=== PATIENT | female | born 1975 | race Hispanic/Latino ===

== ENCOUNTER → 2016-08-22 | Outpatient (CLI) | payer OTHER ==
--- NOTE | 2016-08-23 03:56 | REP ---
Clinical: Umbilical hernia. Technique: Real time benson scale ultrasound examination using curved array transducer. Findings: Ultrasound examination of the periumbilical region demonstrates prior repair and no acute hernia. Palpable mass may correspond to postsurgical scarring. No fluid collection or mass lesion identified. Impression: No evidence for recurrent periumbilical hernia, mass or fluid collection. Signed by Girma Youssef MD 08/23/2016 03:47 A
== END ==
LOC: M RAD 10:12
PROVIDERS: ATTEND Nurse Practitioner Adult Health
DX: K42.9 Umbilical hernia without obstruction or gangrene (principal); R10.13 Epigastric pain

== ENCOUNTER → 2016-10-07 | Outpatient (CLI) | payer OTHER ==
--- NOTE | 2016-10-07 14:58 | REP ---
BILATERAL MAMMOGRAM WITH DIAGNOSTIC MAMMOGRAM LEFT BREAST AND LEFT BREAST ULTRASOUND: HISTORY: Family history of breast cancer in maternal aunt and maternal grandmother. There are on prior studies for comparison. Moderate fibroglandular tissue is seen bilaterally. There is no mammographic evidence of a mass. No architectural distortion is seen bilaterally and there are no suspicious clusters of microcalcifications. Real-time sonographic evaluation of the upper outer quadrant of the left breast performed at the site of the reported palpable abnormality. Again, nothing was seen in this area by mammography. By ultrasound there does appear to be an oval hypoechoic nodule at 1-o'clock measuring 7 x 6 x 3 mm. This is not a simple cyst. No other cystic or solid nodule is seen. IMPRESSION: ACR 4 suspicious. There is no mammographic evidence of mass or clustered microcalcifications. No mammographic evidence of a nodule at the site of the reported palpable abnormality in the upper outer quadrant of the left breast. However, by ultrasound there is a hypoechoic nodule 1-o'clock which measures 7 x 6 x 3 mm. It is not a simple cyst. Recommend ultrasound guided biopsy. BI-RADS/ACR category 4 mammogram. Suspicious abnormality - biopsy should be considered. Usually requires biopsy. This mammogram was interpreted with the aid of an FDA-approved computer-aided detection system. The patient states she/he had a clinical breast exam in September 2016. The patient letter being requested is M4. Signed by Micah Chau MD 10/07/2016 05:24 P
== END ==
LOC: M RAD 12:18
PROVIDERS: ATTEND Nurse Practitioner Adult Health
DX: N63 Unspecified lump in breast (principal)

== ENCOUNTER → 2016-11-22 | Outpatient (CLI) | payer OTHER ==
[~2016-11-22] MED LIST: LIDOCAINE 1% MDV 20ML VIAL As Ordered ONE
--- NOTE | 2016-11-22 12:41 | REP ---
LEFT BREAST POST BIOPSY CLIP PLACEMENT MAMMOGRAM: 11/22/2016. Clinical history: Palpable left breast mass for ultrasound-guided core biopsy. Comparison: Diagnostic mammogram 10/07/2016. Findings. Two-view show heterogeneous dense breast parenchyma in a pattern and distribution unchanged. Stereotactic clip in the upper outer quadrant of the left breast about the 1:30 position in the middle one-third depth of the breast. This is the region of the breast targeted for ultrasound guided biopsy. Followup should be made based on determination from pathologic analysis of the core specimens. Impression: 1. Status post stereotactic biopsy left breast with clip in the upper outer quadrant. 2. Routine followup recommended unless biopsy results indicate earlier or other followup and treatment. Signed by Trevor Goldberg MD 11/22/2016 06:59 P
--- NOTE | 2016-11-22 14:10 | REP ---
ULTRASOUND GUIDED LEFT BREAST BIOPSY: The procedure was performed under the direct supervision of Dr. Goldberg. The patient has a history of a 7 x 6 x 3 mm hypoechoic nodule in the 1 -o'clock position of the left breast seen on a previous ultrasound dated 10/07/2016. The risks and benefits of the procedure were explained to the patient and informed consent was obtained. The left breast nodule was localized using ultrasound guidance. The skin was prepped and draped in a sterile fashion. 1% Xylocaine was used as a local anesthetic. Using ultrasound guidance, a 13 gauge suction-assisted Mammotome needle was inserted and five core biopsy samples were obtained. A marker clip was placed at the biopsy site. The patient tolerated the procedure well and there were no immediate complications. After the appropriate amount of monitored convalescence, the patient was discharged from the department. Reviewed by ROSY Beltran 11/22/2016 03:04 PEdited and Signed by Trevor Goldberg MD 11/22/2016 07:16 P
== END ==
LOC: M RADPRO 10:50
PROVIDERS: ATTEND Surgery
DX: D24.2 Benign neoplasm of left breast (principal); Z79.899 Other long term (current) drug therapy
CPT/HCPCS: 19083; 88305; G0206

== ENCOUNTER → 2017-09-28 | Outpatient (REF) | payer OTHER ==
[2017-10-03 14:16] LABS: HPV HYBRID CAPTURE II Negative (Negative)
== END ==
LOC: M LAB REF 16:52
DX: R30.0 Dysuria (principal)

== ENCOUNTER → 2018-09-03 | Outpatient (REF) | payer OTHER | LOC: M SFHCLERA 16:20 | PROVIDERS: ATTEND Physician Assistant | DX: R82.998 Other abnormal findings in urine (principal) ==

== ENCOUNTER 2018-10-03 10:35 | Emergency (ER) | payer OTHER ==
[~2018-10-03] VITALS: Ht 152.4 cm; Wt 82.0 kg
[2018-10-03 10:36] VITALS: BP 149/94
[2018-10-03] MEDS ORDERED: ARNU1INH PO (10:46)
[2018-10-03] MEDS ORDERED: SING10TA32 PO (10:46)
[2018-10-03] MEDS ORDERED: VENTAER INH (10:46)
--- NOTE | 2018-10-03 11:18 | REP ---
LEFT ANKLE, FOUR VIEWS: HISTORY: Injury. There is no acute fracture or dislocation. The joint spaces are normal in appearance. Soft tissue swelling is present. IMPRESSION: There is no acute fracture or dislocation. Electronically Signed by Paras Canales MD 10/03/2018 11:25 A
== END 2018-10-03 12:04 | disposition home or self-care (01) ==
LOC: M ED 10:35
DX: S93.402A Sprain of unspecified ligament of left ankle, initial encounter (principal); X50.1XXA Overexertion from prolonged static or awkward postures, initial encounter; Y92.89 Other specified places as the place of occurrence of the external cause; Y93.89 Activity, other specified; Y99.0 Civilian activity done for income or pay; J45.909 Unspecified asthma, uncomplicated; Z72.0 Tobacco use; Z79.899 Other long term (current) drug therapy

== ENCOUNTER → 2018-10-11 | Outpatient (REF) | payer OTHER ==
[~2018-10-11] MED LIST changes: +ARNU1INH PO; -LIDOCAINE 1% MDV 20ML VIAL As Ordered ONE; +SING10TA32 PO; +VENTAER INH
[2018-10-11 17:51] LABS: HEMOGLOBIN A1c 5.6 %
== END ==
LOC: M SFHCPLAZ 15:12
PROVIDERS: ATTEND Nurse Practitioner Adult Health
DX: Z83.3 Family history of diabetes mellitus (principal)

== ENCOUNTER → 2018-11-06 | Outpatient (CLI) | payer OTHER ==
--- NOTE | 2018-11-06 11:46 | REP ---
Supine abdomen two views: There are no comparisons. The bowel gas pattern is normal. There are right upper quadrant surgical clips. There is a calcification inferiorly in the pelvis on the left, nonspecific, phlebolith versus ureteral. Skeletal structures and soft tissues otherwise are unremarkable. Impression: Normal bowel gas pattern. Nonspecific pelvic calcification. Electronically Signed by Micah Guy MD 11/06/2018 11:39 A
== END ==
LOC: M RAD 10:30
PROVIDERS: ATTEND Nurse Practitioner Adult Health
DX: R35.0 Frequency of micturition (principal); R39.15 Urgency of urination

== ENCOUNTER → 2019-01-24 | Outpatient (REF) | payer OTHER ==
[2019-01-24 18:53] LABS: CHLAMYDIA DNA AMPLIFICATION NEGATIVE (NEGATIVE); GC DNA AMPLIFICATION NEGATIVE (NEGATIVE)
== END ==
LOC: M LAB REF 16:41
PROVIDERS: ATTEND Advanced Practice Midwife
DX: Z11.3 Encounter for screening for infections with a predominantly sexual mode of transmission (principal); R30.0 Dysuria

== ENCOUNTER → 2019-02-01 | Outpatient (CLI) | payer OTHER ==
--- NOTE | 2019-02-01 15:44 | REP ---
Pelvic Ultrasound: Real-time sonographic evaluation of the pelvis performed utilizing transabdominal and endovaginal technique. The bladder measures 3.6 x 1.6 x 5.0 cm. Uterus measures 7.2 x 4.4 x 5.0 cm. Endometrial thickness is 7 mm. There is no endometrial fluid collection. Right ovary measures 1.8 x 1.5 x 2.1 cm and left ovary 2.0 x 1.6 x 2.0 cm. There is no adnexal mass or free fluid. There is no evidence of left ovarian torsion with RI 0.55 with duplex Doppler evaluation. The right ovary could not be evaluated with duplex Doppler ultrasound due to its very deep position in the pelvis. IMPRESSION: Essentially negative pelvic ultrasound. Electronically Signed by Micah Chau MD 02/05/2019 08:56 A
== END ==
LOC: M RAD 14:14
PROVIDERS: ATTEND Advanced Practice Midwife
DX: R10.2 Pelvic and perineal pain (principal)

== ENCOUNTER → 2019-03-29 | Outpatient (REF) | payer OTHER | LOC: M SFHCWAGY 10:20 | PROVIDERS: ATTEND Obstetrics & Gynecology | DX: Z12.4 Encounter for screening for malignant neoplasm of cervix (principal) ==

== ENCOUNTER → 2019-06-20 | Outpatient (CLI) | payer BC ==
--- NOTE | 2019-06-20 11:08 | REP ---
DIGITAL DIAGNOSTIC BILATERAL MAMMOGRAPHY WITH CAD, 3D TOMOGRAPHY, AND FOCUSED LEFT BREAST SONOGRAPHY. HISTORY: There are two lumps in the left breast for the last 2-3 months. Each is about the size of a pea according to the patient. There is clear/grayish discharge from the left breast. Comparison mammography November 22, 2016 and October 07, 2016. MAMMOGRAPHIC FINDINGS: Skin markers are affixed to the skin at the site of the palpable lump. Both of these are close to one another in the upper outer quadrant on the left. There is a needle biopsy marker clip again noted in the upper outer quadrant left breast away from the area of the palpable lumps. Breast parenchyma remains heterogeneously dense in a pattern which may inhibit the sensitivity of mammography. The breast parenchyma in the region of the palpable lumps however is fat replaced. No dominant density is seen here or elsewhere in either breast. No architectural distortion or mass is seen. No microcalcification or worrisome skin changes appreciated mammographically. SONOGRAPHIC FINDINGS: Focused left breast sonography is performed in the area of the palpable lump in the upper outer quadrant on the left. Heterogeneous fibroglandular background echotexture is seen. In the axillary tail, there is a normal-appearing lymph node this has abnormal fatty center and a thin cortical margin. A normal lymph node is seen mammographically in each axilla. IMPRESSION: BIRADS category 2 benign findings. Clinical followup is advised. This mammogram was interpreted with the aid of an FDA-approved computer-aided detection system. The patient states that she/he has not had a clinical breast exam in over a year. The patient letter being requested is M2 dense . This patient's estimated Tyrer-Cuzick lifetime risk assessment for the breast cancer is 18.4 %.
== END ==
LOC: M WHC 08:51
PROVIDERS: ATTEND Obstetrics & Gynecology
DX: N63.0 Unspecified lump in unspecified breast (principal)
CPT/HCPCS: 76642; 77066; G0279

== ENCOUNTER → 2019-08-02 | Outpatient (CLI) | payer BC | LOC: M PLALAB 11:30 | PROVIDERS: ATTEND Surgery | DX: Z13.79 Encounter for other screening for genetic and chromosomal anomalies (principal) ==

== ENCOUNTER → 2019-08-02 | Outpatient (CLI) | payer BC ==
--- NOTE | 2019-08-02 12:49 | REP ---
FOCUSED LEFT BREAST SONOGRAPHY: HISTORY: Left nipple discharge. Painful left breast mass at 1-o'clock position, 5 cm from the nipple with hypoechoic correlate. Requests retroareolar sonography and sonography at 1-o'clock position in the left breast 5 cm from the nipple. Comparison sonography June 20, 2019. Comparison mammography June 20, 2019. SONOGRAPHIC FINDINGS: In the upper outer quadrant of the left breast in the area of tenderness, 4 cm from the nipple there is a 0.5 cm cyst. 5 cm from the nipple also at 1-o'clock position, there is a 7 mm hypoechoic structure with enhanced through transmission. This is compatible with a complex cyst. In the retroareolar region of the left breast scanning shows no significant finding. IMPRESSION: Upper outer quadrant left breast scanning demonstrates a 7 mm hypoechoic area with enhanced through transmission and a well defined back wall compatible with a complex cyst or small fibroadenoma. There is also a simple cyst at 1-o'clock position measuring 5 mm in diameter. Consider 6-month followup sonogram.
== END ==
LOC: M WHC 11:03
PROVIDERS: ATTEND Surgery
DX: N64.52 Nipple discharge (principal); N63.21 Unspecified lump in the left breast, upper outer quadrant

== ENCOUNTER → 2019-08-12 | Outpatient (CLI) | payer BC ==
[~2019-08-12] MED LIST changes: +PROHANCE 279.3MG/ML 15ML VIAL (A9576) As Ordered ONE
--- NOTE | 2019-08-13 10:45 | REP ---
MRI BILATERAL BREAST WITH AND WITHOUT CONTRAST: HISTORY: Left nipple discharge , mass at 1-o'clock position. COMPARISON: Mammogram 06/20/2019 and ultrasound 06/20/2019 and 08/02/2019. TECHNIQUE: Multiple sequences obtained in the axial, coronal and sagittal planes prior to and following the intravenous administration of 50 mL ProHance. Images are evaluated on the [employer]ume software, including dynamic post-IV gadolinium, axial T1 fat sat images, subtraction images, color overlay images and MIP reconstruction images. Moderate fibroglandular tissue is seen bilaterally. There is mild to moderate background parenchymal enhancement bilaterally. No axillary adenopathy is seen. Multiple subcentimeter cysts are seen in both breasts, more so on the left than on the right. There is a history of benign biopsy of a subcentimeter nodule in the upper outer quadrant of the left breast November 2016. These biopsied pathology results were benign. Metallic marking clip is seen in the upper outer quadrant of the left breast. At that location, there is an 8 mm enhancing nodule corresponding to the size of the nodule, which was seen on that prior ultrasound at the time of the biopsy. There is persistent type 1 enhancement of the nodule consistent with a fibroadenoma. There is no suspicious enhancing mass or morphologic abnormality bilaterally. IMPRESSION: BIRADS category 2 benign bilateral breast MRI. Multiple small subcentimeter cysts in both breasts more so on the left than on the right. At the site of the previously biopsied nodule in the upper outer quadrant of the left breast there is a biopsy clip with 8 mm nodule demonstrating type 1 persistent enhancement consistent with a fibroadenoma. There is no suspicious enhancing mass or morphologic abnormality bilaterally. Electronically Signed by Micah Chau MD 08/13/2019 04:56 P
== END ==
LOC: M RAD 14:39
PROVIDERS: ATTEND Surgery
DX: N64.52 Nipple discharge (principal); N63.20 Unspecified lump in the left breast, unspecified quadrant; N64.4 Mastodynia; Z12.39 Encounter for other screening for malignant neoplasm of breast; N60.11 Diffuse cystic mastopathy of right breast; N60.22 Fibroadenosis of left breast
CPT/HCPCS: A9576; C8908

== ENCOUNTER → 2021-01-07 | Outpatient (CLI) | payer BC ==
[~2021-01-07] MED LIST changes: -PROHANCE 279.3MG/ML 15ML VIAL (A9576) As Ordered ONE; +PROHANCE 279.3MG/ML 15ML VIAL As Ordered ONE
--- NOTE | 2021-01-07 15:25 | REP ---
INDICATION: HIGH BREAST CA FM H/O SCREENING. COMPARISON: MRI 08/12/2019. TECHNIQUE: Three Plii MRI imaging was performed with a dedicated breast coil. Axial, coronal, and sagittal T1 and T2 weighted scans were obtained with and without fat saturation in the usual fashion. The study includes dynamically acquired post gadolinium-enhanced imaging with image subtraction. Maximum intensity projection and multi planar reformation imaging is included as well. This study is interpreted with the aid of [employer]spot, an FDA approved computer aided detection (CAD) software program, on a dedicated breast MRI workstation. The gadolinium enhancement dose is 15 mL of intravenous ProHance. FINDINGS: There is moderate fibroglandular tissue again seen bilaterally. Scattered subcentimeter cysts bilaterally appear to have mildly decreased since the prior study. There is no axillary adenopathy. There is moderate background parenchymal enhancement. The previously biopsied nodule in the upper outer quadrant of the left breast is unchanged, measuring 8 mm in diameter. This demonstrates type 1 persistent enhancement compatible with a fibroadenoma. There is no new suspicious enhancing mass or morphologic abnormality. IMPRESSION: BI-RADS category 2, benign bilateral breast MRI. No change since the prior study. No new suspicious enhancing mass or morphologic abnormality. <Electronically signed by Micah Chau > 01/07/21 [id number]
== END ==
LOC: M RAD 12:50
PROVIDERS: ATTEND Surgery
DX: Z12.39 Encounter for other screening for malignant neoplasm of breast (principal); Z91.89 Other specified personal risk factors, not elsewhere classified; N60.11 Diffuse cystic mastopathy of right breast; N60.12 Diffuse cystic mastopathy of left breast
CPT/HCPCS: A9576; C8908

== ENCOUNTER 2021-06-23 09:20 | Emergency (ER) | payer BC, OTHER ==
[~2021-06-23] VITALS: Ht 152.4 cm; Wt 75.0 kg
[~2021-06-23 09:20] MED LIST changes: -PROHANCE 279.3MG/ML 15ML VIAL As Ordered ONE
[2021-06-23] MEDS ORDERED: ACETAMINOPHEN 325 MG TAB PO ONE (11:10)
[2021-06-23 11:15] VITALS: BP 150/96
== END 2021-06-23 11:17 | disposition home or self-care (01) ==
LOC: M ED 09:20
DX: S63.521A Sprain of radiocarpal joint of right wrist, initial encounter (principal); S63.91XA Sprain of unspecified part of right wrist and hand, initial encounter; W50.2XXA Accidental twist by another person, initial encounter; Y92.89 Other specified places as the place of occurrence of the external cause; Y93.9 Activity, unspecified; Y99.0 Civilian activity done for income or pay; F17.200 Nicotine dependence, unspecified, uncomplicated; Z79.899 Other long term (current) drug therapy

== ENCOUNTER → 2021-08-03 | Outpatient (REF) | payer BC | LOC: M LAB REF 07:19 | PROVIDERS: ATTEND Nurse Practitioner Adult Health | DX: Z00.00 Encounter for general adult medical examination without abnormal findings (principal); R19.4 Change in bowel habit; Z83.42 Family history of familial hypercholesterolemia ==

== ENCOUNTER → 2022-01-04 | Outpatient (REF) | payer OTHER, BC ==
[2022-01-04 13:52] LABS: APPEARANCE, URINE MANUAL CLEAR (CLEAR); BILIRUBIN, URINE MANUAL NEGATIVE (NEGATIVE); BLOOD URINE MANUAL NEGATIVE (NEGATIVE); COLOR, URINE MANUAL YELLOW (YELLOW); GLUCOSE, URINE (UA) MANUAL NEGATIVE (NEGATIVE); KETONE, URINE MANUAL NEGATIVE (NEGATIVE); LEUKOCYTE ESTERASE, URINE MAN NEGATIVE (NEGATIVE); NITRITE, URINE MANUAL NEGATIVE (NEGATIVE); PROTEIN, URINE MANUAL NEGATIVE (NEGATIVE); UROBILINOGEN, URINE MANUAL NORMAL (NORMAL)
== END ==
LOC: M SFHCWAGY 13:07
PROVIDERS: ATTEND Advanced Practice Midwife
DX: R39.15 Urgency of urination (principal)